=== PATIENT | male | born 1955 | race African-American/Black ===

== ENCOUNTER 2016-10-04 13:47 | Emergency (ER) | payer OTHER ==
[~2016-10-04 13:47] MED LIST: LISINOPRIL40 MG PO; NORV5 PO; VITAMIN B PO; VITAMIN D1000 UNI1 PO
== END 2016-10-04 13:59 | disposition home or self-care (01) ==
LOC: ER 13:47
DX: S20.211A Contusion of right front wall of thorax, initial encounter (principal); I10 Essential (primary) hypertension; Z79.899 Other long term (current) drug therapy; W19.XXXA Unspecified fall, initial encounter
CPT/HCPCS: 71020; 71100-RT; 99284

== ENCOUNTER 2016-11-11 08:09 | Emergency (ER) | payer OTHER ==
--- NOTE | ~2016-11-11 | CN ---
Consultation Report [facility] [address] [place]. [address] NAME: MISTI COHEN : 55 STATUS : [facility]#: [id number] AGE: 61 ADM/REG DATE : 11/11/16 MR#: [id number] REPORT SERV DATE: 11/12/16 DICTATED BY: NICOLA SEWELL DATE: 11/11/16 REPORT STATUS : Draft TRANSCRIBED BY: MODL DATE: 11/11/16 MEDICAL CONSULTATION DATE OF CONSULTATION: 11/11/2016 ATTENDING PHYSICIAN: Dr. Odell Lomeli. REASON FOR CONSULTATION: Possible TIA. HISTORY OF PRESENT ILLNESS: This is a 61-year-old black male, who awakened this morning with cold feeling in all the distal fingers of his left hand. He does have pain in his left shoulder from degenerative joint disease. He may have some neck pain occasionally as well. 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 He had no numbness, no weakness on the left side. No trouble with his speech. He is not eating and is very hungry now, wants something to eat. He does have a longstanding history of high blood pressure, followed by Dr. Shivam Gutiérrez at the [facility]. He was evaluated. I was called by Juan David, Nurse Practitioner in the emergency room, who was describing normal laboratory work that include the following: X-ray of the left shoulder showing AC joint degenerative joint disease, otherwise was negative. CT scan of the brain that showed no acute infarct or hemorrhage. A sodium of 144, potassium 3.9, creatinine 1.24, and BUN 14. Troponin less than 0.02. A hemoglobin of 14, hematocrit of 40.8, platelet count of 191, and white count of 2900. INR is 1.1. His portable chest x-ray was obtained and showed no radiographic evidence of any acute process. His EKG showed sinus bradycardia, which is characteristic for him with sinus rhythm by the rhythm strip. UT interval of 0.198 with a rate of 46 beats per minute, and no ST or T-wave changes to suggest ischemia. PAST MEDICAL HISTORY: The patient has hypertension; borderline diabetes, treated with diet; history of hyperlipidemia; had Achilles tendon repair; and prostate biopsy showing low risk cancer. SOCIAL HISTORY: He is , has three sons. He works installing floors. Quit smoking cigarettes about 17 years ago. Drinks occasionally and is a [employer] from [employer] to 1986. FAMILY HISTORY: He has a brother with diabetes. Consultation Report [address] [place]. [address] NAME: MISTI COHEN : 55 STATUS : [facility] PAT#: [id number] AGE: 61 ADM/REG DATE : 11/11/16 MR#: [id number] REPORT SERV DATE: 11/12/16 DICTATED BY: NICOLA SEWELL DATE: 11/11/16 REPORT STATUS : Draft TRANSCRIBED BY: AYLEEN DATE: 11/11/16 REVIEW OF SYSTEMS: He has had no chest pain or shortness of breath. No fever, chills, or night sweats. No unilateral weakness. No melena or hematemesis. No gait abnormality. No falling. No stiff neck. No fits, seizures, or convulsions. The remainder of the review of systems is negative. MEDICATIONS: Home medication: Lisinopril, dose unknown. He stopped amlodipine in the past. He had been on lisinopril 40 mg a day. Recently hydrochlorothiazide was added, but he has not been taking it recently. ALLERGIES: NONE ARE KNOWN. PHYSICAL EXAMINATION: VITAL SIGNS: Blood pressure is 154/94, with a heart rate of 50, respiratory rate 16, afebrile. HEENT: EOMI. Sclerae clear. Conjunctivae pink. He has bilateral arcus senilis. NECK: Supple. Carotids equal. No bruit without any JVD. CHEST: Clear to A and P. HEART: Regular S1, S2 without murmur, gallop, or click. ABDOMEN: Soft, nontender. Bowel sounds are positive. No HSM. EXTREMITIES: No edema. Distal pulses are intact at the dorsalis pedis and posterior tibial. NEUROLOGIC: He withdraws to plantar stimulation. Franchise [employer] Consultant is symmetric bilaterally. Coordination is intact. No tremor. Benjy's reflex is negative of the left hand. Distal pulses are intact at the radial and ulnar on the left side. Deep tendon reflexes are not easily elicitable with the brachioradialis or the biceps on the left side nor the right. Sensory is intact. Subjective cool feeling to the distal finger tips on the left hand as compared to the right is still noted, but no change in sensory interpretation. LABORATORY DATA: As outlined above. ASSESSMENT: 1. Probably a circulatory inhibition through position at nighttime or possibly inhibition of sympathetic innervation of the hand in non-neurologic anatomic fashion. The patient was given aspirin on arrival here. CT scan of the brain is negative. Ultrasound of the carotid arteries could be done to be sure there is nothing interventional that could be done regarding this with attention to the right carotid artery with this being on the left side. He elects to have this done as an outpatient by Dr. Gutiérrez, his primary care physician at [facility], and we will notify Dr. Gutiérrez of this. He will continue his aspirin at 325 p.o. daily until he sees Dr. Gutiérrez again in the next 7 to 14 days. 2. Hypertension. 3. Degenerative joint disease of the left shoulder at the AC joint. 4. Hyperlipidemia, not on a statin drug. He has some arcus senilis, we would question Consultation Report [address] [place]. [address] NAME: MISTI COHEN : 55 STATUS : [facility] PAT#: [id number] AGE: 61 ADM/REG DATE : 11/11/16 MR#: [id number] REPORT SERV DATE: 11/12/16 DICTATED BY: NICOLA SEWELL DATE: 11/11/16 REPORT STATUS : Draft TRANSCRIBED BY: AYLEEN DATE: 11/11/16 triglyceride level, and fasting lipid panel would be a reasonable next test for him as well. He is leaving the emergency room to follow up with Dr. Gutiérrez at a later date. BOAZ/AYLEEN Nicola Sewell M.D. / [id number] CC: MD Shivam Garcia IV, D.O. [facility]
[2016-11-11 09:05] LABS: BASOPHILS ABSOLUTE 0.03 10/3/uL (0.0-0.16); EOSINOPHILS 4.8 %; EOSINOPHILS ABSOLUTE 0.14 10/3/uL (0.0-0.53); ER CBC TAT 0 Hrs 05 Mins; HEMATOCRIT 40.8 % (40.0-51.0); LYMPHOCYTES 44.6 %; LYMPHOCYTES ABSOLUTE 1.29 10/3/uL (0.67-4.30); MEAN CORPUS HGB CONC 34.3 g/dL (32.0-36.0); MEAN CORPUSCULAR HEMOGLOB 30.6 pg (26.0-34.0); MEAN CORPUSCULAR VOLUME 89.1 fL (80-100); MEAN PLATELET VOLUME 9.5 fL (9.2-13.0); MONOCYTES 13.1 %; MONOCYTES ABSOLUTE 0.38 10/3/uL (0.21-1.20); NEUTROPHILS 36.5 %; NEUTROPHILS ABSOLUTE 1.05 10/3/uL (2.02-8.40); PLATELET COUNT 191 10/3/uL (150-400); RBC DISTRIBUTION WIDTH 13.6 % (12.0-16.0); RED CELL COUNT 4.58 10/6/uL (4.7-6.1); WHITE BLOOD CELLS 2.9 10/3/uL (4.5-10.5)
[2016-11-11 09:06] LABS: MANUAL DIFF NO %
[2016-11-11 09:13] LABS: INTERNATIONAL NORMAL RATI 1.1 UNITS (-); PARTIAL THROMBO TIME 29.7 SEC (22.5-37.2); PROTIME (NOT ORD) 13.7 SEC (12.0-14.5)
[2016-11-11 09:22] LABS: CALCIUM, SERUM 8.7 MG/DL (8.5-10.4); CHEST PAIN PROFILE TAT 0 Hrs 22 Mins; CHLORIDE, SERUM 108 MMOL/L (96-112); CO2 (CARBON DIOXIDE) 28 MMOL/L (24-34); CREATININE 1.24 MG/DL (0.70-1.30); GFR AFRICAN AMERICAN 72 ML/MIN (>=60); GFR NON AFRICAN AMERICAN 62 ML/MIN (>=60); GLUCOSE, SERUM 97 MG/DL (60-99); POTASSIUM, SERUM 3.9 MMOL/L (3.5-5.3); SODIUM, SERUM 144 MMOL/L (135-148); TROPONIN I <0.02 NG/ML (<0.05)
[2016-11-11 09:23] LABS: BUN (BLOOD UREA NITROGEN) 14 MG/DL (6-23)
[2016-11-11] MEDS ORDERED: LISINOPRIL40 MG PO (12:05)
[2016-11-11] MEDS ORDERED: CYANO1000T PO (12:05)
[2016-11-11] MEDS ORDERED: INDAPAMIDE1.25 MG PO (12:06)
[2016-11-11] MEDS ORDERED: VITAMIN D2000 UNIT PO (12:06)
== END 2016-11-11 12:32 | disposition home or self-care (01) ==
LOC: ER 08:09
PROVIDERS: Nurse Practitioner Family
DX: G45.9 Transient cerebral ischemic attack, unspecified (principal); M25.512 Pain in left shoulder; I10 Essential (primary) hypertension; E11.9 Type 2 diabetes mellitus without complications; Z85.46 Personal history of malignant neoplasm of prostate; Z87.891 Personal history of nicotine dependence; Z79.899 Other long term (current) drug therapy
CPT/HCPCS: 70450; 71010; 73030-LT; 80048; 83735; 84484; 85025; 85610; 85730; 93005; 99285; A9270-GY